=== PATIENT | male | born 1990 | race Caucasian/White ===

== ENCOUNTER 2018-05-22 18:29 | Emergency (ER) | payer SELFPAY ==
[~2018-05-22] VITALS: Ht 175.3 cm; Wt 66.7 kg
[2018-05-22 18:38] VITALS: BP 148/90
--- NOTE | 2018-05-22 18:40 | NUR ---
[facility] [employer] [employer] FOR PRE[employer]. PT IS [employer] 15, AOX4. DENIES ANY PAIN AT THIS TIME. DENIES PMH
[2018-05-22 19:25] VITALS: BP 148/90
--- NOTE | 2018-05-22 19:25 | NUR ---
PATIENT BIB [employer]. PATIENT EXAMINED BY DR. KEANE. PATIENT MEDICALLY CLEARED AND RELEASED IN CUSTODY IN STABLE CONDITION. ORIGINAL PRE-BOOK FORM GIVEN TO OFFICER [facility] #[id number].
== END 2018-05-22 19:25 ==
LOC: MED 18:29
DX: Z02.89 Encounter for other administrative examinations (principal)
CPT/HCPCS: 99283

== ENCOUNTER 2021-03-05 16:50 | Emergency (ER) | payer MEDICAID ==
[~2021-03-05] VITALS: Ht 180.3 cm; Wt 71.7 kg
[2021-03-05 16:55] VITALS: BP 134/95
--- NOTE | 2021-03-05 17:01 | NUR ---
BIB SELF C/O 08/15 LEFT FOOT PAIN RADIATING TO LEFT KNEE S/P FALLING FROM TREE APPROX 6 FEET X 2 DAYS.
[2021-03-05] MEDS ORDERED: KETOROLAC 30 MG/ML VIAL IM ONE (17:05)
--- NOTE | 2021-03-05 17:20 | NUR ---
PT TAKEN TO X RAY
[2021-03-05] MEDS ORDERED: NAPR-54 PO (17:42)
[2021-03-05 18:36] VITALS: BP 134/95
--- NOTE | 2021-03-05 18:36 | NUR ---
Patient discharged with v/s stable. Written and verbal after care instructions given and explained. Patient alert, oriented and verbalized understanding of instructions. Ambulatory with [facility]. All questions addressed prior to discharge. ID band removed. Patient advised to follow up with PMD. Rx of NAPROXEN given. Patient educated on indication of medication including possible reaction and side effects. Opportunity to ask questions provided and answered.
== END 2021-03-05 18:36 | disposition home or self-care (01) ==
LOC: MED 16:50
DX: S90.32XA Contusion of left foot, initial encounter (principal); W17.89XA Other fall from one level to another, initial encounter; Y93.89 Activity, other specified; Y92.89 Other specified places as the place of occurrence of the external cause; Y99.8 Other external cause status
CPT/HCPCS: 73630; 96372; 99283; J1885